=== PATIENT | male | born 1980 | race Caucasian/White ===

== ENCOUNTER → 2018-08-28 | Outpatient (CLI) | payer OTHER ==
[~2018-08-28] VITALS: Ht 177.8 cm; Wt 89.0 kg
[~2018-08-28] MED LIST: IBUP-2070 PO
[2018-08-28 08:29] VITALS: BP 155/76
== END | disposition home or self-care (01) ==
LOC: HBOWC 07:18
PROVIDERS: ATTEND Surgery Plastic and Reconstructive Surgery
DX: T81.89XA Other complications of procedures, not elsewhere classified, initial encounter (principal); F17.290 Nicotine dependence, other tobacco product, uncomplicated; Y83.8 Other surgical procedures as the cause of abnormal reaction of the patient, or of later complication, without mention of misadventure at the time of the procedure; Y92.89 Other specified places as the place of occurrence of the external cause
CPT/HCPCS: 11043; G0463

== ENCOUNTER → 2018-09-11 | Outpatient (CLI) | payer OTHER ==
[2018-09-11 08:10] VITALS: BP 105/58
== END | disposition home or self-care (01) ==
LOC: HBOWC 08:01
PROVIDERS: ATTEND Surgery Plastic and Reconstructive Surgery
DX: T81.89XD Other complications of procedures, not elsewhere classified, subsequent encounter (principal); F17.290 Nicotine dependence, other tobacco product, uncomplicated; Y83.8 Other surgical procedures as the cause of abnormal reaction of the patient, or of later complication, without mention of misadventure at the time of the procedure